=== PATIENT | female | born 1965 | race Caucasian/White ===

== ENCOUNTER → 2023-04-03 | Outpatient (CLI) | payer BC ==
--- NOTE | 2023-04-04 10:03 | MM ---
Reason for Exam: Screening (asymptomatic). Patient History: Menarche at age 10. First Full-Term at age 16. Postmenopausal. Risk Values: Jessica 5 year model risk: 1.0%. NCI Lifetime model risk: 5.5%. Tissue Density: There are scattered fibroglandular densities. Findings: Analyzed By CAD. There is no suspicious group of microcalcifications or new suspicious mass in either breast. There is no suspicious group of microcalcifications or new suspicious mass in either breast. Benign-appearing calcifications bilaterally. Left upper aspect lymph node noted. Overall Assessment: Benign, BI-RAD 2 Management: Screening Mammogram of both breasts in [address] [facility] will attempt to contact patient to return for supplemental views and ultrasound if indicated. Patient should continue monthly self-breast exams. A clinical breast exam by your physician is recommended on an annual basis. This exam should not preclude additional follow-up of suspicious palpable abnormalities. Note on Jessica scores and lifetime risk: 1. A Jessica score greater than 3% is considered moderate risk. If this is the case, consider specialist referral to assess eligibility for a risk reducing agent. 2. If overall lifetime risk for the development of breast cancer is 20% or higher, the patient may qualify for future screening with alternating mammogram and breast MRI. Electronically signed and approved by: Yohannes Stack DO
== END | disposition home or self-care (01) ==
LOC: RADMAMWWP 07:00
PROVIDERS: ATTEND Family Medicine
DX: Z12.31 Encounter for screening mammogram for malignant neoplasm of breast (principal); Z78.0 Asymptomatic menopausal state
CPT/HCPCS: 77063; 77067

== ENCOUNTER 2023-05-20 08:34 | Observation (INO) | payer BC ==
[2023-05-20] MEDS ORDERED: ONDANSETRON 4 MG/2 ML VIAL IVP STA (08:54)
--- NOTE | 2023-05-20 09:00 | ED ---
General Adult HPI - General Chief complaint: Chest Pain Stated complaint: chest pain Time Seen by Provider: 05/20/23 08:40 Source: patient, RN notes reviewed, old records reviewed Mode of arrival: ambulatory Limitations: no limitations - History of Present Illness Initial comments: This is a 57-year-old female who presents to the emergency department co mplaining of right-sided chest pain that radiates to her back. Patient states she also got very nauseated and vomited. Patient states the pain started about 10:00 last night. Patient states his been pretty constant with a couple episodes of getting worse. Patient states she has diabetes high blood pressure high cholesterol but doesn't smoke and doesn't have any family history of heart disease. Patient denies any diaphoretic episodes. Patient states she's not sure if he short of breath or stitches some anxiety. Patient denies any headache patient denies numbness weakness. Patient denies lightheadedness or dizziness. Patient denies any recent fever chills or cough - Related Data Allergies Allergy/AdvReac Type Severity Reaction Status Date / Time No Known Allergies Allergy Verified 05/20/23 08:40 Review of Systems ROS Statement: Those systems with pertinent positive or pertinent negative responses have been documented in the HPI. ROS Other: All systems not noted in ROS Statement are negative. Past Medical History Past Medical History: Diabetes Mellitus, Hypertension History of Any Multi-Drug Resistant Organisms: None Reported Past Surgical History: No Surgical Hx Reported Past Psychological History: No Psychological Hx Reported Smoking Status: Never smoker Past Alcohol Use History: None Reported Past Drug Use History: None Reported General Exam - General Exam Comments Initial Comments: GENERAL: Patient is well-developed and well-nourished. Patient is nontoxic and well- hydrated and is in mild distress. ENT: Neck is soft and supple. No significant lymphadenopathy is noted. Oropharynx is clear. Moist mucous membranes. Neck has full range of motion without eliciting any pain. EYES: The sclera were anicteric and conjunctiva were pink and moist. Extraocular movements were intact and pupils were equal round and reactive to light. Eyelids were unremarkable. PULMONARY: Unlabored respirations. Good breath sounds bilaterally. No audible rales rhonchi or wheezing was noted. CARDIOVASCULAR: There is a regular rate and rhythm without any murmurs gallops or rubs. ABDOMEN: Patient has right upper quadrant tenderness on palpation. SKIN: Skin is clear with no lesions or rashes and otherwise unremarkable. NEUROLOGIC: Patient is alert and oriented x3. Cranial nerves II through XII are grossly intact. Motor and sensory are also intact. Normal speech, volume and content. Symmetrical smile. MUSCULOSKELETAL: Normal extremities with adequate strength and full range of motion. No lower extremity swelling or edema. No calf tenderness. LYMPHATICS: No significant lymphadenopathy is noted PSYCHIATRIC: Normal psychiatric evaluation. Limitations: no limitations Course Vital Signs 05/20/23 08:37 Temperature 98 F Pulse Rate 80 Respiratory 18 Rate Blood Pressure 181/89 O2 Sat by Pulse 99 Oximetry Medical Decision Making - Medical Decision Making EKG was interpreted by myself shows a sinus rhythm at 79 bpm NC interval 154 QRS is 80 QT interval 370 QTC is 421 per patient's EKG shows no ST segment elevation or depression. Was pt. sent in by a medical professional or institution (, PA, STAMP REDEMPTION CLERK, urgent care, hospital, or residential...) When possible be specific @ -No Did you speak to anyone other than the patient for history (EMS, parent, family, police, friend...)? What history was obtained from this source @ -No Did you review nursing and triage notes (agree or disagree)? Why? @ -I reviewed and agree with nursing and triage notes Were old charts reviewed (outside hosp., previous admission, EMS record, old EKG, old radiological studies, urgent care reports/EKG's, residential records)? Report findings @ -No old charts were reviewed Differential Diagnosis (chest pain, altered mental status, abdominal pain women, abdominal pain men, vaginal bleeding, weakness, fever, dyspnea, syncope, headache, dizziness, GI bleed, back pain, seizure, CVA, palpatations, mental health, musculoskeletal)? @ -Differential Chest Pain: Stable Angina, Unstable Angina, STEMI, NSTEMI Aortic Dissection, Pneumothorax, Musculoskeletal, Esophageal Spasm GERD, Cholecystitis, Pancreatitis, Zoster, this is not meant to be an all-inclusive list. EKG interpreted by me (3pts min.). @ -As above X-rays interpreted by me (1pt min.). @ -Chest x-ray showed no acute abnormality CT interpreted by me (1pt min.). @ -None done U/S interpreted by me (1pt. min.). @ -Ultrasound showed no gallbladder thickening no, no common duct dilatation no stones were noted. It was a poor scan secondary to intestinal gas What testing was considered but not performed or refused? (CT, X-rays, U/S, labs)? Why? @ -None What meds were considered but not given or refused? Why? @ -None Did you discuss the management of the patient with other professionals (professionals i.e. , PA, STAMP REDEMPTION CLERK, lab, RT, psych nurse, social worker clinical, farmer tree fruit and nut crops, teacher, account officer, medical case worker)? Give summary @ -I spoke with [facility] agreed to admit the patient Was smoking cessation discussed for >3mins.? @ -No Was critical care preformed (if so, how long)? @ -No Were there social determinants of health that impacted care today? How? (Homelessness, low income, unemployed, alcoholism, drug addiction, transportation, low edu. Level, literacy, decrease access to med. care, detention, rehab)? @ -No Was there de-escalation of care discussed even if they declined (Discuss DNR or withdrawal of care, Hospice)? DNR status @ -No What co-morbidities impacted this encounter? (DM, HTN, Smoking, COPD, CAD, Cancer, CVA, ARF, Chemo, Hep., AIDS, mental health diagnosis, sleep apnea, morbid obesity)? @ -None Was patient admitted / discharged? Hospital course, mention meds given and r oute, prescriptions, significant lab abnormalities, going to OR and other pertinent info. @ -Patient was experiencing central chest pain and that chest pain states the course of the patient's ED stay. Patient's initial troponin was negative SHOWS NEGATIVE X-RAY OF THE CHEST WAS NEGATIVE. I SPOKE WITH [facility] AND THEY AGREED TO ADMIT THE PATIENT ADMITTED THE PATIENT I CONSULT TO CARDIOLOGY. Undiagnosed new problem with uncertain prognosis? @ -No Drug Therapy requiring intensive monitoring for toxicity (Heparin, Nitro, Insulin, Cardizem)? @ -No Were any procedures done? @ -No Diagnosis/symptom? @ -Chest pain Acute, or Chronic, or Acute on Chronic? @ -Acute Uncomplicated (without systemic symptoms) or Complicated (systemic symptoms)? @ -Complicated Side effects of treatment? @ -No Exacerbation, Progression, or Severe Exacerbation? @ -No Poses a threat to life or bodily function? How? (Chest pain, [place], AL, pneumonia, PE, COPD, DKA, ARF, appy, cholecystitis, CVA, Diverticulitis, Homicidal, Suicidal, threat to staff... and all critical care pts) @ -Yes this could lead to an AL which Aguilar end organ dysfunction Diagnosis/symptom? @ -Right upper quadrant abdominal pain Acute, or Chronic, or Acute on Chronic? @ -Acute Uncomplicated (without systemic symptoms) or Complicated (systemic symptoms)? @ -Uncomplicated Side effects of treatment? @ -none Exacerbation, Progression, or Severe Exacerbation] @ -no Poses a threat to life or bodily function? @ -no - Lab Data Result diagrams: 05/20/23 09:10 05/20/23 09:10 Lab Results 05/20/23 05/20/23 05/20/23 Range/Units 09:10 09:10 09:10 WBC 11.8 H (3.8-10.6) k/uL RBC 5.23 (3.80-5.40) m/uL Hgb 15.4 (11.4-16.0) gm/dL Hct 46.6 H (34.0-46.0) % MCV 89.2 (80.0-100.0) fL MCH 29.4 (25.0-35.0) pg MCHC 32.9 (31.0-37.0) g/dL RDW 13.3 (11.5-15.5) % Plt Count 327 (150-450) k/uL MPV 7.0 Neutrophils % 80 % Lymphocytes % 14 % Monocytes % 3 % Eosinophils % 2 % Basophils % 0 % Neutrophils # 9.5 H (1.3-7.7) k/uL Lymphocytes # 1.7 (1.0-4.8) k/uL Monocytes # 0.4 (0-1.0) k/uL Eosinophils # 0.2 (0-0.7) k/uL Basophils # 0.0 (0-0.2) k/uL PT 10.0 (9.0-12.0) sec INR 0.9 (<1.2) APTT 21.9 L (22.0-30.0) sec Sodium 140 (137-145) mmol/L Potassium 4.4 (3.5-5.1) mmol/L Chloride 104 (98-107) mmol/L Carbon Dioxide 25 (22-30) mmol/L Anion Gap 11 mmol/L BUN 10 (7-17) mg/dL Creatinine 0.60 (0.52-1.04) mg/dL Est GFR (CKD-EPI)AfAm >90 (>60 ml/min/1.73 sqM) Est GFR (CKD-EPI)NonAf >90 (>60 ml/min/1.73 sqM) Glucose 179 H (74-99) mg/dL Calcium 9.2 (8.4-10.2) mg/dL Magnesium 1.9 (1.6-2.3) mg/dL Total Bilirubin 0.5 (0.2-1.3) mg/dL AST 31 (14-36) U/L ALT 39 H (4-34) U/L Alkaline Phosphatase 107 (38-126) U/L Troponin I (0.000-0.034) ng/mL Total Protein 8.0 (6.3-8.2) g/dL Albumin 4.6 (3.5-5.0) g/dL Amylase 63 (30-110) U/L Lipase 115 (23-300) U/L 05/20/23 Range/Units 09:10 WBC (3.8-10.6) k/uL RBC (3.80-5.40) m/uL Hgb (11.4-16.0) gm/dL Hct (34.0-46.0) % MCV (80.0-100.0) fL MCH (25.0-35.0) pg MCHC (31.0-37.0) g/dL RDW (11.5-15.5) % Plt Count (150-450) k/uL MPV Neutrophils % % Lymphocytes % % Monocytes % % Eosinophils % % Basophils % % Neutrophils # (1.3-7.7) k/uL Lymphocytes # (1.0-4.8) k/uL Monocytes # (0-1.0) k/uL Eosinophils # (0-0.7) k/uL Basophils # (0-0.2) k/uL PT (9.0-12.0) sec INR (<1.2) APTT (22.0-30.0) sec Sodium (137-145) mmol/L Potassium (3.5-5.1) mmol/L Chloride (98-107) mmol/L Carbon Dioxide (22-30) mmol/L Anion Gap mmol/L BUN (7-17) mg/dL Creatinine (0.52-1.04) mg/dL Est GFR (CKD-EPI)AfAm (>60 ml/min/1.73 sqM) Est GFR (CKD-EPI)NonAf (>60 ml/min/1.73 sqM) Glucose (74-99) mg/dL Calcium (8.4-10.2) mg/dL Magnesium (1.6-2.3) mg/dL Total Bilirubin (0.2-1.3) mg/dL AST (14-36) U/L ALT (4-34) U/L Alkaline Phosphatase (38-126) U/L Troponin I <0.012 (0.000-0.034) ng/mL Total Protein (6.3-8.2) g/dL Albumin (3.5-5.0) g/dL Amylase (30-110) U/L Lipase (23-300) U/L Disposition Clinical Impression: Chest pain, Right upper quadrant abdominal pain Disposition: ADMITTED IP TO THIS [facility] Referrals: Sheldon Lyn MD [Primary Care Provider] - 1-2 days Time of Disposition: 12:30
[2023-05-20 09:23] LABS: Basophils % (A) 0 %; Eosinophils # (A) 0.2 k/uL (0-0.7); Eosinophils % (A) 2 %; HCT 46.6 % (34.0-46.0); HGB 15.4 gm/dL (11.4-16.0); Lymphocytes # (A) 1.7 k/uL (1.0-4.8); Lymphocytes % (A) 14 %; MCH 29.4 pg (25.0-35.0); MCHC 32.9 g/dL (31.0-37.0); MCV 89.2 fL (80.0-100.0); Monocytes # (A) 0.4 k/uL (0-1.0); Monocytes % (A) 3 %; Neutrophils # (A) 9.5 k/uL (1.3-7.7); Neutrophils % (A) 80 %; Platelet Count 327 k/uL (150-450); RBC 5.23 m/uL (3.80-5.40); RDW 13.3 % (11.5-15.5); WBC 11.8 k/uL (3.8-10.6)
[2023-05-20 09:40] LABS: ALT 39 U/L (4-34); AST 31 U/L (14-36); African American GFR (CKD) >90 (>60 ml/min/1.73 sqM); Albumin 4.6 g/dL (3.5-5.0); Alkaline Phosphatase 107 U/L (38-126); Amylase 63 U/L (30-110); Anion Gap 11 mmol/L; Blood Urea Nitrogen 10 mg/dL (7-17); Calcium 9.2 mg/dL (8.4-10.2); Carbon Dioxide 25 mmol/L (22-30); Chloride 104 mmol/L (98-107); Glucose 179 mg/dL (74-99); Lipase 115 U/L (23-300); Magnesium 1.9 mg/dL (1.6-2.3); Non-African American GFR(CKD) >90 (>60 ml/min/1.73 sqM); Potassium 4.4 mmol/L (3.5-5.1); Sodium 140 mmol/L (137-145); Total Bilirubin 0.5 mg/dL (0.2-1.3)
[2023-05-20 09:41] LABS: INR 0.9 (<1.2)
[2023-05-20 09:47] LABS: Partial Thromboplastin Time 21.9 sec (22.0-30.0)
--- NOTE | 2023-05-20 09:50 | XR ---
EXAMINATION TYPE: XR chest 2V DATE OF EXAM: 05/20/2023 9:42 AM COMPARISON: None TECHNIQUE: XR chest 2V Frontal and lateral views of the chest. CLINICAL INDICATION:Female, 57 years old with history of Chest Pain; FINDINGS: Lungs/Pleura: There is no evidence of pleural effusion, focal consolidation, or pneumothorax. Pulmonary vascularity: Unremarkable. Heart/mediastinum: Cardiomediastinal silhouette is unremarkable. Musculoskeletal: No acute osseous pathology. IMPRESSION: No acute cardiopulmonary disease/process.
--- NOTE | 2023-05-20 11:09 | US ---
EXAMINATION TYPE: US gallbladder DATE OF EXAM: 05/20/2023 COMPARISON: NONE CLINICAL INDICATION: Female, 57 years old with history of Right upper quadrant abdominal pain; RUQ pa in since 10pm last night, 3 episodes of vomiting TECHNIQUE: Multiple sonographic images of the right upper quadrant are obtained. FINDINGS: EXAM MEASUREMENTS: Liver Length: 23.1 cm Gallbladder Wall: 0.1 cm CBD: 0.3 cm Right Kidney: 10.7x5.1x6.4 cm ADJUNCT PHILOSOPHY FACULTY NOTES: Pancreas: Tail obscured by overlying bowel gas Liver: Increased attenuation, decreased visualization of vessels suggestive of fatty infiltrate Gallbladder: wnl Evidence for sonographic Colvin's sign: No CBD: wnl Right Kidney: difficult to visualize exam technically difficult due to large body habitus, overlying bowel gas, and increased attenuation from the liver IMPRESSION: 1. probable hepatic steatosis.
[2023-05-20] MEDS ORDERED: ASPIRIN 81 MG PO STA (12:33)
[2023-05-20] MEDS ORDERED: NITROGLYCERIN SL TABS 0.4 MG TAB SUBLINGUAL PRN (12:33)
[2023-05-20] MEDS ORDERED: DEXTROSE 50% SYRINGE 50 ML IVP PRN ×2 (14:13)
--- NOTE | 2023-05-20 14:18 | P.HPIM ---
History of Present Illness H&P Date: 05/20/23 History of present illness; patient is a 57-year-old lady with past medical history significant for hypertension, hyperlipidemia, diabetes mellitus presented to the ER because of chest pain. Patient stated that chest pain started last night around 10 PM, was located underneath her her right breast and was radiating to her back. Patient states chest pain was intermittent, ranging in intensity from 5-10 x 10 intensity, no aggravating or relieving factors associated with this chest pain. During these episodes of chest pain patient became nauseous and vomited. Patient tolerated This Pain throughout the Night but This Morning it became worse and she decided to come to the ER Initial lab work in the ER showed WBC 10.8, hemoglobin 15.4, platelet count 327, sodium 140, potassium 4.4, BUN 11 creatinine 0.60 troponin 0.012 lipase 115 Gallbladder ultrasound done showed probable hepatic steatosis Chest x-ray showed no acute cardiac process. EKG done showed no acute ST segment changes, no T-wave inversion, medical rate of 79 bpm, QRS 80 Patient admitted to medicine service REVIEW OF SYSTEMS: CONSTITUTIONAL: No fever, no malaise, no fatigue. HEENT: No recent visual problems or hearing problems. Denied any sore throat. CARDIOVASCULAR: As mentioned in HPI PULMONARY: No shortness of breath, no cough, no hemoptysis. GASTROINTESTINAL: Mentioned in HPI NEUROLOGICAL: No headaches, no weakness, no numbness. HEMATOLOGICAL: Denies any bleeding or petechiae. GENITOURINARY: Denies any burning micturition, frequency, or urgency. MUSCULOSKELETAL/RHEUMATOLOGICAL: Denies any joint pain, swelling, or any muscle pain. ENDOCRINE: Denies any polyuria or polydipsia. The rest of the 14-point review of systems is negative. PHYSICAL EXAMINATION: GENERAL: The patient is alert and oriented x3, not in any acute distress. Well developed, well nourished. HEENT: Pupils are round and equally reacting to light. EOMI. No scleral icterus. No conjunctival pallor. Normocephalic, atraumatic. No pharyngeal erythema. No thyromegaly. CARDIOVASCULAR: S1 and S2 present. No murmurs, rubs, or gallops. PULMONARY: Chest is clear to auscultation, no wheezing or crackles. ABDOMEN: Soft, nontender, nondistended, normoactive bowel sounds. No palpable organomegaly. MUSCULOSKELETAL: No joint swelling or deformity. EXTREMITIES: No cyanosis, clubbing, or pedal edema. NEUROLOGICAL: Gross neurological examination did not reveal any focal deficits. SKIN: No rashes. Assessment and plan Chest pain right upper quadrant abdominal pain Hypertension Hyperlipidemia [id number] diabetes mellitus Monitor CBC Monitor CMP Trend troponins Ordered d-dimer Check HbA1c level Check TSH Continue aspirin, Continue sliding scale insulin Ordered HIDA scan consult cardiology Resume home meds DVT prophylaxis: Past Medical History Past Medical History: Diabetes Mellitus, Hypertension History of Any Multi-Drug Resistant Organisms: None Reported Past Surgical History: No Surgical Hx Reported Past Psychological History: No Psychological Hx Reported Smoking Status: Never smoker Past Alcohol Use History: None Reported Past Drug Use History: None Reported Medications and Allergies Home Medications Medication Instructions Recorded Confirmed Type Ascorbic Acid [Vitamin C] 1,000 mg PO DAILY 05/20/23 05/20/23 History Aspirin 81 mg PO DAILY 05/20/23 05/20/23 History Cholecalciferol [Vitamin D3 (25 25 mcg PO DAILY 05/20/23 05/20/23 History Mcg = 1000 Iu)] Elderberry Fruit [Elderberry] 350 mg PO DAILY 05/20/23 05/20/23 History Felodipine [Plendil] 10 mg PO DAILY 05/20/23 05/20/23 History Losartan Potassium [Cozaar] 25 mg PO DAILY 05/20/23 05/20/23 History Magnesium Oxide [Magnesium] 500 mg PO DAILY 05/20/23 05/20/23 History [place]-3/Dha/Epa/Fish Oil [Fish Oil 2 cap PO DAILY 05/20/23 05/20/23 History 1,000 mg Softgel] Zinc Gluconate [Zinc] 50 mg PO DAILY 05/20/23 05/20/23 History metFORMIN HCL [Glucophage] 500 mg PO BID 05/20/23 05/20/23 History Allergies Allergy/AdvReac Type Severity Reaction Status Date / Time No Known Allergies Allergy Verified 05/20/23 12:58 Physical Exam Vitals: Vital Signs Temp Pulse Resp BP Pulse Ox 05/20/23 13:00 78 18 138/68 95 05/20/23 12:00 82 18 156/67 96 05/20/23 11:00 80 16 153/61 98 05/20/23 09:45 79 18 162/75 96 05/20/23 08:37 98 F 80 18 181/89 99 Intake and Output 05/19/23 05/20/23 05/20/23 22:59 06:59 14:59 Other: Weight 106.594 kg Results CBC & Chem 7: 05/20/23 09:10 05/20/23 09:10 Labs: Abnormal Lab Results - Last 24 Hours (Table) 05/20/23 05/20/23 05/20/23 Range/Units 09:10 09:10 09:10 WBC 11.8 H (3.8-10.6) k/uL Hct 46.6 H (34.0-46.0) % Neutrophils # 9.5 H (1.3-7.7) k/uL APTT 21.9 L (22.0-30.0) sec Glucose 179 H (74-99) mg/dL ALT 39 H (4-34) U/L
[2023-05-20 16:53] LABS: Glucose,Whole Blood 96 mg/dL (70-110)
[2023-05-20] MEDS: INSULIN ASPART (NovoLOG) 100 UNIT/ML VIAL SQ SCH ×2 (16:57→21:04)
[2023-05-20] MEDS: NITROGLYCERIN OINT 1 INCH/GM PACKET TOPICAL SCH ×2 (17:26→23:55)
--- NOTE | 2023-05-20 20:26 | CT ---
EXAMINATION TYPE: CT angio chest CT DLP: 615.8 mGycm, Automated exposure control for dose reduction was used. DATE OF EXAM: 05/20/2023 7:51 PM COMPARISON: Chest x-ray 05/20/2023 . CLINICAL INDICATION:Female, 57 years old with history of Rule out PE; chest pain and elevated d-dimer TECHNIQUE/CONTRAST: CTA scan of the thorax is performed with IV Contrast, patient injected with 100 mL of Isovue 370, pul monary embolism protocol. MIP images are created and reviewed. FINDINGS: Pulmonary Artery: There is no evidence for a filling defect within the pulmonary vasculature to sugge st acute pulmonary embolism. Main pulmonary trunk is dilated measuring 3.7 cm in width. The right and left main pulmonary arteries are prominent Lungs/Pleura: Bibasilar subsegmental atelectasis. No sizable pneumothorax or pleural effusion. Mild c entrilobular emphysematous changes. Airway: Large airways are patent. Heart: Heart is within normal limits for size.. Vasculature: Mild atherosclerotic calcifications are present throughout the aorta and its branches. Mediastinum: Few mediastinal lymph nodes, none of which exceed 1 cm in short axis. Musculoskeletal: Mild degenerative disc disease changes are present throughout the thoracolumbar spin e. Soft Tissues: Unremarkable. Lower neck: No significant findings. Upper Abdomen: Diffuse low-attenuation to the liver parenchyma.. IMPRESSION: 1. No evidence of pulmonary embolism or acute cardiopulmonary process. 2. Enlarged pulmonary trunk suggesting a component of pulmonary hypertension. 3. Hepatic steatosis.
[2023-05-20 20:55] LABS: Glucose,Whole Blood 123 mg/dL (70-110)
--- NOTE | 2023-05-20 22:12 | CONS ---
CONSULTATION CHIEF COMPLAINT: Chest pain. HISTORY OF PRESENT ILLNESS: This is a 57-year-old lady with history of hypertension, diabetes, dyslipidemia that came to hospital complaining of chest pain. She describes it as precordial chest pressure that started around 10 o'clock last night and radiated to her back, it was associated with epigastric discomfort, nausea and vomiting subsequently. Cardiology has been consulted because of chest pain. Currently, she is being worked up for acute cholecystitis. EKG does not reveal ischemic changes. Two sets of cardiac enzymes have been negative. The patient's symptoms have improved significantly since she came in. PAST MEDICAL HISTORY: Significant for hypertension, diabetes, dyslipidemia. MEDICATIONS: Include, 1. Prinivil. 2. Losartan 25 daily. 3. Metformin. 4. Aspirin. 5. Magnesium. ALLERGIES: No known drug allergies. FAMILY HISTORY: Negative for premature coronary artery disease. SOCIAL HISTORY: Negative for smoking. History of drug abuse. REVIEW OF SYSTEMS: A 14 out of 14 review of systems has been performed. Pertinent as documented. PHYSICAL EXAMINATION: GENERAL: Comfortable at rest. VITAL SIGNS: Stable. NECK: There is jugular venous distention. Carotid upstroke is normal. There is no bruit. CHEST: Reveals good air entry bilaterally. HEART: Reveals first and second heart sounds. No gallop. No murmur. No rub. ABDOMEN: Soft, nontender. EXTREMITIES: Exam of extremities did not reveal any edema. Peripheral pulses are felt. ASSESSMENT: 1. Precordial chest pain. 2. Hypertension. 3. Diabetes. 4. Dyslipidemia. PLAN: The patient's symptoms are suggestive of more of a GI etiology than cardiac etiology at this time. I will obtain a 2D echo to assess LV function, wall motion and consider further evaluation depending upon how her symptoms evolve and what happens to her HIDA scan. I discussed these issues at length with the patient and her daughter who is at bedside. MMODL / IJN: [id number] /
[2023-05-21 03:27] VITALS: RESP 18
[2023-05-21] MEDS: NITROGLYCERIN OINT 1 INCH/GM PACKET TOPICAL SCH ×2 (05:36→12:46)
[2023-05-21 06:30] LABS: Glucose,Whole Blood 161 mg/dL (70-110)
[2023-05-21 07:35] VITALS: BP 144/79; PULSE 76; TEMP 98.4
[2023-05-21 08:56] LABS: Chol/HDL Ratio 7.07 Ratio; LDL Cholesterol,Calculated 138.2 mg/dL (0.0-131.0)
[2023-05-21] MEDS ORDERED: MAGNESIUM OXIDE 400 MG TAB PO SCH (09:00)
[2023-05-21] MEDS ORDERED: ASCORBIC ACID 500 MG TAB PO SCH (09:00)
[2023-05-21] MEDS ORDERED: LOSARTAN 25 MG TAB PO SCH (09:00)
[2023-05-21] MEDS ORDERED: ASPIRIN 325 MG TAB PO SCH (09:00)
[2023-05-21] MEDS ORDERED: CHOLECALCIFEROL 25 MCG (1000 IU) TABLET PO SCH (09:00)
[2023-05-21] MEDS ORDERED: ASPIRIN 81 MG PO SCH (09:00)
--- NOTE | 2023-05-21 09:55 | NM ---
EXAMINATION TYPE: NM hepatobiliary w CCK DATE OF EXAM: 05/21/2023 9:19 AM COMPARISON: 05/20/2023 ultrasound CLINICAL INDICATION:Female, 57 years old with history of Right upper quadrant pain; TECHNIQUE: The patient was given 5 mCi of Technetium 99m-Mebrofenin as a radiotracer and multiple sc intigraphic images were obtained of the abdomen. Gallbladder function was also assessed after the adm inistration of 0.0022 mg of Sincalide (cholecystokinin) and additional scintigraphic images were obta ined of the abdomen. A region of interest was drawn over the gallbladder and a timing activity curve was generated. The gallbladder ejection fraction was calculated. FINDINGS: Normal uptake of radiotracer was identified within the liver within with excretion into the hepatic and common biliary ducts within 12 minutes. There was normal progressive washout of the liver over th e course of the study. Radiotracer uptake within the gallbladder as well as small bowel activity was identified at 22 minutes. Maximum calculated gallbladder ejection fraction is: 82% at 27minutes (Normal gallbladder ejection fraction is > 35%) IMPRESSION: 1. Normal hepatobiliary scan. 2. Normal ejection fraction.
[2023-05-21 10:21] LABS: Glucose,Whole Blood 121 mg/dL (70-110)
--- NOTE | 2023-05-21 12:12 | PN ---
PROGRESS NOTE SUBJECTIVE: The patient presented to hospital with chest and epigastric pain. She is doing well. Her symptoms have resolved. She had a HIDA scan that is negative. CT scan of the chest that is negative for pulmonary embolism, had an EKG that appeared within normal limits. OBJECTIVE: GENERAL: On exam, comfortable at rest. VITAL SIGNS: Stable. CHEST: Reveals good air entry bilaterally. HEART: Reveals first and second heart sounds. No gallop. No murmur. ABDOMEN: Soft. MUSCULOSKELETAL: Exam of extremities did not reveal any edema. Peripheral pulses are felt. ASSESSMENT AND PLAN: Precordial chest pain, atypical probably noncardiac. I will review the echo that appears normal. The patient can undergo an outpatient stress test. MMODL / IJN: [id number] /
[2023-05-21] MEDS: INSULIN ASPART (NovoLOG) 100 UNIT/ML VIAL SQ SCH ×2 (12:46→13:32)
--- NOTE | 2023-05-21 13:14 | P.DS ---
Providers Date of admission: 05/20/23 12:34 Expected date of discharge: 05/21/23 Attending physician: Lucila Marks Consults: 05/20/23 12:34 Consult Physician Urgent Consulting Provider: [facility] Consult Reason/Comments: Chest pain Do you want consulting provider notified?: Yes Primary care physician: Sheldon Lyn Hospital Course: Discharge diagnoses; right upper quadrant abdominal pain Hypertension Hyperlipidemia Kam-fxzajjb-nstvpidhw diabetes mellitus Hospital course; patient is a 57-year-old lady with past medical history significant for hypertension, hyperlipidemia, diabetes mellitus presented to the ER because of chest pain. Patient stated that chest pain started last night around 10 PM, was located underneath her her right breast and was radiating to her back. Patient states chest pain was intermittent, ranging in intensity from 5-10 x 10 intensity, no aggravating or relieving factors associated with this chest pain. During these episodes of chest pain patient became nauseous and vomited. Patient tolerated This Pain throughout the Night but This Morning it became worse and she decided to come to the ER Initial lab work in the ER showed WBC 10.8, hemoglobin 15.4, platelet count 327, sodium 140, potassium 4.4, BUN 11 creatinine 0.60 troponin 0.012 lipase 115 Gallbladder ultrasound done showed probable hepatic steatosis Chest x-ray showed no acute cardiac process. EKG done showed no acute ST segment changes, no T-wave inversion, medical rate of 79 bpm, QRS 80 Patient admitted to medicine service 05/21 HIDA scan was negative for any acute biliary process. CTA chest was negative for acute PE Cardiology where the patient, ordered 2-D echo, 2-D echo was reviewed, recommend outpatient follow-up, cardiology cleared the patient for discharge PHYSICAL EXAMINATION: GENERAL: The patient is alert and oriented x3, not in any acute distress. Well developed, well nourished. HEENT: Pupils are round and equally reacting to light. EOMI. No scleral icterus. No conjunctival pallor. Normocephalic, atraumatic. No pharyngeal erythema. No thyromegaly. CARDIOVASCULAR: S1 and S2 present. No murmurs, rubs, or gallops. PULMONARY: Chest is clear to auscultation, no wheezing or crackles. ABDOMEN: Soft, nontender, nondistended, normoactive bowel sounds. No palpable organomegaly. MUSCULOSKELETAL: No joint swelling or deformity. EXTREMITIES: No cyanosis, clubbing, or pedal edema. NEUROLOGICAL: Gross neurological examination did not reveal any focal deficits. SKIN: No rashes. Plan - Discharge Summary New Discharge Prescriptions: Continue Kent-3/Dha/Epa/Fish Oil [Fish Oil 1,000 mg Softgel] 2 cap PO DAILY Elderberry Fruit [Elderberry] 350 mg PO DAILY Losartan Potassium [Cozaar] 25 mg PO DAILY Felodipine [Plendil] 10 mg PO DAILY Aspirin 81 mg PO DAILY metFORMIN HCL [Glucophage] 500 mg PO BID Zinc Gluconate [Zinc] 50 mg PO DAILY Cholecalciferol [Vitamin D3 (25 Mcg = 1000 Iu)] 25 mcg PO DAILY Ascorbic Acid [Vitamin C] 1,000 mg PO DAILY Magnesium Oxide [Magnesium] 500 mg PO DAILY Discharge Medication List Ascorbic Acid [Vitamin C] 1,000 mg PO DAILY 05/20/23 [History] Aspirin 81 mg PO DAILY 05/20/23 [History] Cholecalciferol [Vitamin D3 (25 Mcg = 1000 Iu)] 25 mcg PO DAILY 05/20/23 [History] Elderberry Fruit [Elderberry] 350 mg PO DAILY 05/20/23 [History] Felodipine [Plendil] 10 mg PO DAILY 05/20/23 [History] Losartan Potassium [Cozaar] 25 mg PO DAILY 05/20/23 [History] Magnesium Oxide [Magnesium] 500 mg PO DAILY 05/20/23 [History] Kent-3/Dha/Epa/Fish Oil [Fish Oil 1,000 mg Softgel] 2 cap PO DAILY 05/20/23 [History] Zinc Gluconate [Zinc] 50 mg PO DAILY 05/20/23 [History] metFORMIN HCL [Glucophage] 500 mg PO BID 05/20/23 [History] Follow up Appointment(s)/Referral(s): Sheldon Lyn MD [Primary Care Provider] - 1-2 days Nehemiah Salinas MD [STAFF PHYSICIAN] - 1 Week Discharge Disposition: HOME SELF-CARE
--- NOTE | 2023-05-21 17:40 | CA ---
Transthoracic Echo Report Name: Chance Dowell Age: 57 Gender: F : 1965 Exam Date: 05/21/2023 10:25 Exam Location: [facility] Ht (in): 65 Wt (lb): 235 Ordering Physician: Nehemiah Salinas MD ([id number]) Attending/Referring Phys: Rita SMITH Test Technician Jayson Frye Procedure CPT: Indications: Chest Pain Cardiac Hx: Technical Quality: Technically difficult study Contrast 1: Lumason Total Dose (mL): 5 Contrast 2: Agitated Saline Total Dose (mL): 10 MEASUREMENTS (Male / Female) Normal Values 2D ECHO LV Diastolic Diameter PLAX 3.7 cm 4.2 - 5.9 / 3.9 - 5.3 cm LV Systolic Diameter PLAX 2.3 cm IVS Diastolic Thickness 1.1 cm 0.6 - 1.0 / 0.6 - 0.9 cm LVPW Diastolic Thickness 1.3 cm 0.6 - 1.0 / 0.6 - 0.9 cm LV Relative Wall Thickness 0.7 RV Internal Dim ED PLAX 2.8 cm LVOT Diameter 2.1 cm Aortic Root Diameter 2.9 cm LA Systolic Diameter LX 1.9 cm 3.0 - 4.0 / 2.7 - 3.8 cm LV Diastolic Volume MOD BP 53.1 cm??? 67 - 155 / 56 - 104 cm??? LV Systolic Volume MOD BP 30.9 cm??? 22 - 58 / 19 - 49 cm??? LV Ejection Fraction MOD BP 41.8 % >= 55 % LV Diastolic Volume MOD 4C 59.7 cm??? LV Systolic Volume MOD 4C 34.0 cm??? LV Ejection Fraction MOD 4C 43.0 % LV Diastolic Length 4C 6.3 cm LV Systolic Length 4C 5.8 cm LV Diastolic Volume MOD 2C 47.2 cm??? LV Systolic Volume MOD 2C 27.3 cm??? LV Ejection Fraction MOD 2C 42.1 % LV Diastolic Length 2C 6.4 cm LV Systolic Length 2C 6.0 cm LA Volume 35.8 cm??? 18 - 58 / 22 - 52 cm??? DOPPLER AV Peak Velocity 127.2 cm/s AV Peak Gradient 6.5 mmHg LVOT Peak Velocity 114.3 cm/s LVOT Peak Gradient 5.2 mmHg AV Area Cont Eq pk 3.1 cm??? MV Peak Velocity 94.5 cm/s MV Peak Gradient 3.6 mmHg MV Mean Velocity 50.1 cm/s MV Mean Gradient 1.2 mmHg MV Velocity Time Integral 35.8 cm MR Peak Velocity 174.4 cm/s MR Peak Gradient 12.2 mmHg Mitral E Point Velocity 69.1 cm/s Mitral A Point Velocity 88.5 cm/s Mitral E to A Ratio 0.8 MV Deceleration Time 319.5 ms TR Peak Velocity 103.2 cm/s TR Peak Gradient 4.3 mmHg Right Ventricular Systolic Press 9.3 mmHg PV Peak Velocity 65.5 cm/s PV Peak Gradient 1.7 mmHg FINDINGS Left Ventricle Normal LV size.left ventricular ejection fraction is estimated at 55-60 %. Right Ventricle Normal right ventricular size. Right Atrium Normal right atrial size. Left Atrium Normal left atrial size. Mitral Valve Structurally normal mitral valve. Mild MR. Aortic Valve Trileaflet aortic valve. No aortic valve stenosis or regurgitation. Tricuspid Valve Structurally normal tricuspid valve. Pulmonic Valve Pulmonic valve not well visualized. No pulmonic regurgitation. Pericardium Not well visualized. Aorta Normal size aortic root and proximal ascending aorta. CONCLUSIONS Normal LV systolic function mild mitral regurgitationsuresh Previewed by: Dr. Nehemiah Salinas MD (Electronically Signed) Final Date: 21 May 2023 17:40
== END 2023-05-21 13:33 | disposition home or self-care (01) ==
LOC: EC 08:34 → INTOOBSV 12:34 → 6NMEDSUR 12:34
PROVIDERS: ADMIT Hospitalist; ATTEND Hospitalist
DX: R07.89 Other chest pain (principal); R10.11 Right upper quadrant pain; R10.13 Epigastric pain; E11.9 Type 2 diabetes mellitus without complications; E78.00 Pure hypercholesterolemia, unspecified; I10 Essential (primary) hypertension; K76.0 Fatty (change of) liver, not elsewhere classified; Z79.82 Long term (current) use of aspirin; Z79.899 Other long term (current) drug therapy; Z87.898 Personal history of other specified conditions
CPT/HCPCS: 96374; 99285; 36415; 94760; 93005; 93306; 85379; 80061; 80053; 84443; 82150; 83690; 83735; 84484; 85025; 85610; 85730; 83036; 71046; 76705; 71275; 78227; G0378; A9537; J2405; J2805; Q9950; Q9967